=== PATIENT | male | born 1970 | race Caucasian/White ===

== ENCOUNTER 2018-03-15 14:24 | Inpatient (IN) | payer OTHER ==
[~2018-03-15] VITALS: Ht 182.9 cm; Wt 80.8 kg
--- NOTE | ~2018-03-15 | EKG ---
[place], [place] ELECTROCARDIOGRAM REPORT NAME: SCARLETT WONG UNIT #: [id number] ROOM: 406 DOCTOR: JODI DRAFT REPORT BIRTHDATE: [birth year] [facility] Test Date: 2018-03-15 Test Time: 14:43:26 Pat Name: SCARLETT WONG Department: Room: 406 Gender: M [employer]: 16 : 1970 Requested By: SRIDHAR KELLEY Order Number: [id number] Reading MD: Zee Multani MD Measurements Intervals [place] Rate: 60 P: 26 AL: 131 QRS: 14 QRSD: 103 T: 12 QT: 398 QTc: 398 Interpretive Statements Sinus rhythm Baseline wander in lead(s) V4 Electronically Signed On 03-18-2018 6:30:21 PST by Zee Multani MD CM:EKGRPT:ELECTROCARDIOGRAM REPORT [id number] SRIDHAR ZAPATA DRAFT REPORT SRIDHAR KELLEY MD
--- NOTE | ~2018-03-15 | EKG ---
[place], [place] ELECTROCARDIOGRAM REPORT NAME: SCARLETT WONG UNIT #: [id number] ROOM: 406 DOCTOR: JODI DRAFT REPORT BIRTHDATE: [birth year] [facility] Test Date: 2018-03-15 Test Time: 17:47:12 Pat Name: SCARLETT WONG Department: Room: 406 Gender: M [employer] Sales Attendant: Kira Martin : 1970 Requested By: SRIDHAR KELLEY Order Number: [id number] Reading MD: Zee Multani MD Measurements Intervals [place] Rate: 64 P: 32 IN: 126 QRS: 10 QRSD: 97 T: 10 QT: 408 QTc: 421 Interpretive Statements Sinus rhythm Abnormal R-wave progression, early transition Borderline ST elevation, anterior leads Baseline wander in lead(s) V1,V2 Electronically Signed On 03-18-2018 7:18:10 PST by Zee Multani MD CM:EKGRPT:ELECTROCARDIOGRAM REPORT [id number] SRIDHAR ZAPATA DRAFT REPORT SRIDHAR KELLEY MD
--- NOTE | ~2018-03-15 | EKG ---
[place], [place] ELECTROCARDIOGRAM REPORT NAME: SCARLETT WONG UNIT #: [id number] ROOM: 406 DOCTOR: JODI DRAFT REPORT BIRTHDATE: [birth year] [facility] Test Date: 2018-03-15 Test Time: 20:40:36 Pat Name: SCARLETT WONG Department: Room: 406 Gender: M Occ Ther: Chelsea Garay : 1970 Requested By: SRIDHAR KELLEY Order Number: [id number] Reading MD: Zee Multani MD Measurements Intervals [place] Rate: 61 P: 26 MA: 133 QRS: 6 QRSD: 97 T: 8 QT: 401 QTc: 404 Interpretive Statements Sinus rhythm Electronically Signed On 03-18-2018 7:22:24 PST by Zee Multani MD CM:EKGRPT:ELECTROCARDIOGRAM REPORT [id number] SRIDHAR KELLEY MD EPIPHANY DRAFT REPORT SRIDHAR KELLEY MD
[~2018-03-15 14:24] MED LIST: CYCLOBENZAPRINE10 MG PO; DARVOCET N 1001 TAB PO; FLOMAX0.4 MG PO; LIDEX0.05% T; MOTRIN800 MG PO; NAPROSYN500 MG PO; NORCO 325 MG-51 TAB PO; PARAFON FORTE500 MG PO; PERCOCET 325 MG1 TA2 PO; ZOFRAN4 MG PO
[2018-03-15 14:25] VITALS: BP 128/79
[2018-03-15] MEDS ORDERED: LIPITOR20 MG PO (14:31)
[2018-03-15 14:45] LABS: BASO % 0.4 % (0.0-1.0); EOS # 0.1 10*3/uL (0.0-0.4); EOS % 1.6 % (1.0-4.0); HEMATOCRIT 41.9 % (42.0-52.0); HEMOGLOBIN 14.2 g/dl (14.0-18.0); LYMPH # 2.1 10*3/uL (1.3-4.4); LYMPH % 26.4 % (27.0-41.0); MEAN CELL VOLUME 86.6 fl (80.0-94.0); MEAN CORPUSCULAR HGB 29.3 pg (27.0-31.0); MEAN CORPUSCULAR HGB CONC 33.9 g/dl (33.0-37.0); MEAN PLATELET VOLUME 10.6 fl (9.6-12.3); MONO # 0.5 10*3/uL (0.1-1.0); MONO % 5.9 % (3.0-9.0); NEUT # 5.2 10*3/uL (2.3-7.9); NEUT % 65.3 % (47.0-73.0); PLATELET COUNT AUTOMATED 169 10*3/uL (130-400); RED BLOOD COUNT 4.84 10*6/uL (4.50-5.90); RED CELL DISTRI WIDTH 12.2 % (0-14.5)
[2018-03-15 15:07] LABS: BUN 18 mg/dl (7-24); CHLORIDE 101 mmol/L (98-107); CREATININE 1.07 mg/dL (0.70-1.30); POTASSIUM 4.4 mmol/L (3.5-5.1); SODIUM 138 mmol/L (136-145); TROPONIN I < 0.015 ng/ml (<0.045)
[2018-03-15 15:22] VITALS: BP 122/80
[2018-03-15 15:33] LABS: ACT PARTIAL THROMBO TIME 22.9 SECONDS (20.8-31.5)
[2018-03-15 16:00] VITALS: BP 135/71
[2018-03-15 20:00] VITALS: BP 113/75
[2018-03-16] VITALS: BP 113/68
[2018-03-16 06:18] LABS: BASO % 0.4 % (0.0-1.0); EOS # 0.1 10*3/uL (0.0-0.4); EOS % 1.8 % (1.0-4.0); HEMATOCRIT 39.2 % (42.0-52.0); HEMOGLOBIN 13.2 g/dl (14.0-18.0); LYMPH % 27.9 % (27.0-41.0); MEAN CELL VOLUME 86.7 fl (80.0-94.0); MEAN CORPUSCULAR HGB 29.2 pg (27.0-31.0); MEAN CORPUSCULAR HGB CONC 33.7 g/dl (33.0-37.0); MEAN PLATELET VOLUME 11.5 fl (9.6-12.3); MONO # 0.5 10*3/uL (0.1-1.0); MONO % 6.8 % (3.0-9.0); NEUT # 4.5 10*3/uL (2.3-7.9); NEUT % 62.8 % (47.0-73.0); PLATELET COUNT AUTOMATED 160 10*3/uL (130-400); RED BLOOD COUNT 4.52 10*6/uL (4.50-5.90); RED CELL DISTRI WIDTH 12.4 % (0-14.5); WHITE BLOOD COUNT 7.2 10*3/uL (4.8-10.8)
[2018-03-16 06:46] LABS: ALBUMIN 3.6 gm/dl (3.1-4.5); BUN 11 mg/dl (7-24); CHLORIDE 107 mmol/L (98-107); CHOLESTEROL 116 mg/dL (<200); CREATININE 0.86 mg/dL (0.70-1.30); POTASSIUM 3.9 mmol/L (3.5-5.1); SGOT/AST 18 IU/L (3-35); SGPT/ALT 25 U/L (12-78); SODIUM 141 mmol/L (136-145); TRIGLYCERIDES 142 mg/dl (<150); VLDL CHOLESTEROL 28 mg/dL (6-40)
[2018-03-16 06:53] LABS: ALKALINE PHOSPHATASE 69 U/L (45-117); FREE T4 0.85 ng/dl (0.76-1.46); HDL CHOLESTEROL 31 mg/dl (40-60); LDL CHOLESTEROL 57 mg/dL (9-159); TOTAL PROTEIN 6.2 gm/dL (6.4-8.2)
[2018-03-16 06:54] LABS: ACT PARTIAL THROMBO TIME 25.9 SECONDS (20.8-31.5)
[2018-03-16 07:42] LABS: VITAMIN D, 25-HYDROXY 32.9 ng/mL (30-100)
[2018-03-16 08:00] VITALS: BP 122/78
[2018-03-16 12:00] VITALS: BP 130/82
== END 2018-03-16 14:30 | disposition home or self-care (01) | DRG 312 ==
LOC: ED 14:24 → EDHOLD 15:09 → 4E 15:45
PROVIDERS: Emergency Medicine; Podiatrist Primary Podiatric Medicine
DX: R55 Syncope and collapse (principal); M54.9 Dorsalgia, unspecified; E78.5 Hyperlipidemia, unspecified; R73.9 Hyperglycemia, unspecified; D64.9 Anemia, unspecified; Z87.442 Personal history of urinary calculi; Z83.3 Family history of diabetes mellitus; Z79.899 Other long term (current) drug therapy

== ENCOUNTER 2021-02-25 06:16 | Emergency (ER) | payer BC ==
[~2021-02-25] VITALS: Ht 182.8 cm; Wt 102.1 kg
[~2021-02-25 06:16] MED LIST changes: +LIPITOR20 MG PO
[2021-02-25 06:43] LABS: BILIRUBIN Negative (Negative); BLOOD 1+ (Negative); CLARITY Clear (Clear); COLOR Yellow (Yellow); GLUCOSE Negative (Negative); KETONE Negative (Negative); LEUKO ESTERASE Negative (Negative); NITRITE Negative (Negative); SPECIFIC GRAVITY 1.015 (1.001-1.030); UROBILINOGEN 0.2 E.U./dl (0.0-1.0)
[2021-02-25 07:05] LABS: BACTERIA TRACE; EPITHELIAL CELLS 0-2
[2021-02-25 07:55] LABS: BASO % 0.5 % (0.0-1.0); EOS # 0.1 10*3/uL (0.0-0.4); EOS % 1.5 % (1.0-4.0); HEMATOCRIT 44.9 % (42.0-52.0); LYMPH # 1.6 10*3/uL (1.3-4.4); LYMPH % 26.8 % (27.0-41.0); MEAN CELL VOLUME 85.5 fl (80.0-94.0); MEAN CORPUSCULAR HGB CONC 33.9 g/dl (33.0-37.0); MEAN PLATELET VOLUME 10.9 fl (9.6-12.3); MONO # 0.4 10*3/uL (0.1-1.0); MONO % 7.3 % (3.0-9.0); NEUT # 3.8 10*3/uL (2.3-7.9); NEUT % 63.2 % (47.0-73.0); PLATELET COUNT AUTOMATED 188 10*3/uL (130-400); RED BLOOD COUNT 5.25 10*6/uL (4.50-5.90); RED CELL DISTRI WIDTH 12.6 % (0-14.5)
[2021-02-25 08:23] LABS: ALBUMIN 3.9 gm/dl (3.1-4.5); ALKALINE PHOSPHATASE 86 U/L (45-117); BUN 16 mg/dl (7-24); CHLORIDE 106 mmol/L (98-107); CREATININE 1.07 mg/dL (0.70-1.30); POTASSIUM 4.3 mmol/L (3.5-5.1); SGOT/AST 25 IU/L (3-35); SGPT/ALT 34 U/L (12-78); SODIUM 139 mmol/L (136-145); TOTAL PROTEIN 7.5 gm/dL (6.4-8.2)
[2021-02-25] MEDS ORDERED: NAPROXEN250 MG PO (08:34)
[2021-02-25] MEDS ORDERED: TYLENOL325 M1 PO (08:34)
== END 2021-02-25 08:36 | disposition home or self-care (01) ==
LOC: ED 06:16
PROVIDERS: Emergency Medicine
DX: R10.30 Lower abdominal pain, unspecified (principal); N50.811 Right testicular pain; Z79.899 Other long term (current) drug therapy

== ENCOUNTER 2021-04-12 10:16 | Emergency (ER) | payer OTHER, BC ==
[~2021-04-12] VITALS: Ht 182.8 cm; Wt 104.3 kg
[~2021-04-12 10:16] MED LIST changes: +NAPROXEN250 MG PO; +TYLENOL325 M1 PO
== END 2021-04-12 12:42 | disposition home or self-care (01) ==
LOC: ED 10:16
DX: S90.31XA Contusion of right foot, initial encounter (principal); W18.39XA Other fall on same level, initial encounter; Y93.89 Activity, other specified; Y92.89 Other specified places as the place of occurrence of the external cause; Y99.8 Other external cause status

== ENCOUNTER 2021-06-10 09:17 | Inpatient (IN) | payer BC ==
[~2021-06-10] VITALS: Ht 182.8 cm; Wt 105.3 kg
[2021-06-10] VITALS (9 sets, daily range): BP systolic 117–143; BP diastolic 71–80
[2021-06-10 09:58] LABS: BASO % 0.1 % (0.0-1.0); EOS % 0.1 % (1.0-4.0); HEMATOCRIT 43.5 % (42.0-52.0); LYMPH # 1.3 10*3/uL (1.3-4.4); LYMPH % 8.3 % (27.0-41.0); MEAN CORPUSCULAR HGB 28.5 pg (27.0-31.0); MEAN CORPUSCULAR HGB CONC 33.6 g/dl (33.0-37.0); MEAN PLATELET VOLUME 10.3 fl (9.6-12.3); MONO # 1.2 10*3/uL (0.1-1.0); MONO % 8.2 % (3.0-9.0); NEUT # 12.4 10*3/uL (2.3-7.9); NEUT % 82.8 % (47.0-73.0); PLATELET COUNT AUTOMATED 217 10*3/uL (130-400); RED BLOOD COUNT 5.12 10*6/uL (4.50-5.90); RED CELL DISTRI WIDTH 12.8 % (0-14.5)
[2021-06-10 10:16] LABS: ALBUMIN 3.8 gm/dl (3.1-4.5); ALKALINE PHOSPHATASE 87 U/L (45-117); BUN 10 mg/dl (7-24); CHLORIDE 103 mmol/L (98-107); CREATININE 1.08 mg/dL (0.70-1.30); LIPASE 84 U/L (73-393); SGOT/AST 13 IU/L (3-35); SGPT/ALT 33 U/L (12-78); SODIUM 136 mmol/L (136-145); TOTAL PROTEIN 7.7 gm/dL (6.4-8.2)
[2021-06-10 10:24] LABS: BILIRUBIN Negative (Negative); BLOOD 1+ (Negative); CLARITY Clear (Clear); COLOR Yellow (Yellow); GLUCOSE Negative (Negative); KETONE Trace (Negative); LEUKO ESTERASE Negative (Negative); NITRITE Negative (Negative); PH 7.5 (4.5-8.0)
[2021-06-10 11:13] LABS: BACTERIA 1+; MUCOUS 1+; RBC 21-30 rbc/hpf (0-2)
[2021-06-10] MEDS ORDERED: PERCOCET 5-3251 EACH PO ×2 (16:26)
[2021-06-10] MEDS ORDERED: ZOFRAN4 MG PO ×2 (16:26)
[2021-06-11] VITALS: BP 126/67
[2021-06-11 06:50] LABS: BASO % 0.1 % (0.0-1.0); MEAN CELL VOLUME 86.7 fl (80.0-94.0); MEAN CORPUSCULAR HGB CONC 33.4 g/dl (33.0-37.0); MEAN PLATELET VOLUME 10.5 fl (9.6-12.3); MONO # 1.3 10*3/uL (0.1-1.0); MONO % 8.2 % (3.0-9.0); NEUT % 85.1 % (47.0-73.0); PLATELET COUNT AUTOMATED 224 10*3/uL (130-400); RED BLOOD COUNT 4.73 10*6/uL (4.50-5.90); RED CELL DISTRI WIDTH 12.9 % (0-14.5); WHITE BLOOD COUNT 16.4 10*3/uL (4.8-10.8)
[2021-06-11 07:06] LABS: BUN 11 mg/dl (7-24); CHLORIDE 102 mmol/L (98-107); CHOLESTEROL 179 mg/dL (<200); LDL CHOLESTEROL 109 mg/dL (9-159); POTASSIUM 4.1 mmol/L (3.5-5.1); SODIUM 135 mmol/L (136-145); TRIGLYCERIDES 81 mg/dl (<150)
[2021-06-11 08:00] VITALS: BP 141/86
[2021-06-11] MEDS ORDERED: COLACE100 MG PO (11:38)
[2021-06-11] MEDS ORDERED: HYDROCODONE-AC1 EAC1 PO (11:38)
[2021-06-11 12:00] VITALS: BP 144/81
== END 2021-06-11 15:45 | disposition home or self-care (01) | DRG 854 ==
LOC: ED 09:17 → EDHOLD 14:02 → 5E 16:46
PROVIDERS: Emergency Medicine; Internal Medicine; ADMIT Internal Medicine; ATTEND Internal Medicine
PROC: 0DTJ4ZZ Resection of Appendix, Percutaneous Endoscopic Approach (ICD-10-PCS; principal; 2021-06-10)
PROC: 3E0T3BZ Introduction of Anesthetic Agent into Peripheral Nerves and Plexi, Percutaneous Approach (ICD-10-PCS; 2021-06-10)
DX: A41.9 Sepsis, unspecified organism (principal); K35.30 Acute appendicitis with localized peritonitis, without perforation or gangrene; G89.18 Other acute postprocedural pain; R73.9 Hyperglycemia, unspecified; E80.6 Other disorders of bilirubin metabolism; E78.5 Hyperlipidemia, unspecified

== ENCOUNTER 2025-04-26 18:49 | Emergency (ER) | payer BC ==
[~2025-04-26] VITALS: Ht 180.3 cm; Wt 97.5 kg
[~2025-04-26 18:49] MED LIST changes: +COLACE100 MG PO; +HYDROCODONE-AC1 EAC1 PO; +PERCOCET 5-3251 EACH PO
[2025-04-26 19:40] LABS: BILIRUBIN Negative (Negative); BLOOD Trace-Lysed (Negative); CLARITY Clear (Clear); COLOR Yellow (Yellow); KETONE Negative (Negative); LEUKO ESTERASE Negative (Negative); NITRITE Negative (Negative); PH 7.0 (4.5-8.0); SPECIFIC GRAVITY 1.020 (1.001-1.030); UROBILINOGEN 1.0 E.U./dl (0.0-1.0)
[2025-04-26] MEDS ORDERED: IOHEXOL 300 MG/ML 100 ML VIAL IV ONE (19:40)
[2025-04-26 19:51] LABS: BACTERIA 1+; MUCOUS 1+
[2025-04-26 20:05] LABS: BASO # 0.0 10*3/uL (0.0-0.1); BASO % 0.3 % (0.0-1.0); EOS # 0.1 10*3/uL (0.0-0.4); EOS % 0.9 % (1.0-4.0); MEAN CELL VOLUME 87.0 fl (80.0-94.0); MEAN CORPUSCULAR HGB 28.9 pg (27.0-31.0); MEAN PLATELET VOLUME 10.8 fl (9.6-12.3); MONO # 0.7 10*3/uL (0.1-1.0); MONO % 9.2 % (3.0-9.0); NEUT # 6.0 10*3/uL (2.3-7.9); NEUT % 78.5 % (47.0-73.0); NUCLEATED RED BLOOD CELL 0.0 % (0.0-0.0); NUCLEATED RED BLOOD CELL 0.0 10*3/uL (0.0-0.0); PLATELET COUNT AUTOMATED 194 10*3/uL (130-400); RED CELL DISTRI WIDTH 12.7 % (0-14.5)
[2025-04-26 20:21] LABS: BUN 11 mg/dl (9-23); SGPT/ALT 24 U/L (5-49)
[2025-04-26] MEDS ORDERED: CIPRO500 MG PO (22:04)
[2025-04-26] MEDS ORDERED: METRONIDAZOLE500 M1 PO (22:04)
[2025-04-26] MEDS ORDERED: Acetaminophen/Hydrocodone HP 10/325 PO ONE (22:05)
[2025-04-26] MEDS ORDERED: metroNIDAZOLE 500 MG TAB PO ONE (22:05)
[2025-04-26] MEDS ORDERED: Ciprofloxacin Hydrochloride 500 MG TAB PO ONE (22:05)
== END 2025-04-26 22:05 | disposition home or self-care (01) ==
LOC: ED 18:49
PROVIDERS: Nurse Practitioner Family
DX: K52.9 Noninfective gastroenteritis and colitis, unspecified (principal); R10.9 Unspecified abdominal pain; Z87.442 Personal history of urinary calculi; Z90.49 Acquired absence of other specified parts of digestive tract